=== PATIENT | female | born 1990 | race Caucasian/White ===

== ENCOUNTER → 2018-04-26 | Outpatient (REF) | payer OTHER ==
[2018-04-26 12:38] LABS: BASO # 0.1 10^3/uL (0.0-0.2); BASO % 1.2 % (0.0-1.0); EOS # 0.2 10^3/uL (0.0-0.50); EOS % 2.7 % (0.0-3.0); HEMATOCRIT 40.7 % (36.0-47.0); HEMOGLOBIN 13.2 g/dl (12.0-15.5); LYMPH # 2.3 10^3/uL (1.5-6.5); LYMPH % 32.8 % (24.0-44.0); MEAN CORPUSCULAR HEMOGLOBIN 30.1 pg (27.0-33.0); MEAN CORPUSCULAR HGB CONC 32.4 g/dl (32.0-36.5); MEAN CORPUSCULAR VOLUME 92.9 fl (80.0-96.0); MONO # 0.4 10^3/uL (0.0-0.8); MONO % 5.9 % (0.0-5.0); NEUTROPHILS % 57.1 % (36.0-66.0); PLATELET COUNT, AUTOMATED 264 10^3/uL (150-450); RED BLOOD COUNT 4.38 10^6/uL (4.00-5.40)
[2018-04-26 13:25] LABS: BLOOD UREA NITROGEN 13 MG/DL (7-18); CALCIUM LEVEL 8.8 MG/DL (8.5-10.1); CARBON DIOXIDE LEVEL 28 MEQ/L (21-32); CHLORIDE LEVEL 108 MEQ/L (98-107); CHOLESTEROL LEVEL 218 MG/DL (<200); CHOLESTEROL RISK RATIO 3.892 (<5); CREATININE FOR GFR 0.84 MG/DL (0.55-1.30); FREE T4 0.94 NG/DL (0.76-1.46); GLOMERULAR FILTRATION RATE > 60.0 (>60); GLUCOSE, FASTING 95 MG/DL (70-100); HDL CHOLESTEROL 56 MG/DL (>40); LDL CHOLESTEROL 148 MG/DL (<100); NON-HDL-C 162 MG/DL; POTASSIUM SERUM 3.8 MEQ/L (3.5-5.1); SODIUM LEVEL 141 MEQ/L (136-145); THYROID STIMULATING HORMONE 0.529 uIU/ML (0.358-3.740); TRIGLYCERIDES LEVEL 69 MG/DL (<150)
== END ==
LOC: M SFHCLERA 09:12
PROVIDERS: ATTEND Nurse Practitioner Family
DX: Z76.89 Persons encountering health services in other specified circumstances (principal)

== ENCOUNTER 2018-10-28 18:18 | Emergency (ER) | payer OTHER ==
[~2018-10-28] VITALS: Ht 175.3 cm; Wt 69.1 kg
[2018-10-28 18:18] VITALS: BP 137/83
[2018-10-28] MEDS ORDERED: ZYPR2.5T2 PO (20:53)
[2018-10-28] MEDS ORDERED: LEXA1TAB PO (20:53)
[2018-10-28] MEDS ORDERED: PRAZ2CAP PO (20:53)
[2018-10-28] MEDS ORDERED: PRAZ5CAP PO (20:53)
[2018-10-28] MEDS ORDERED: LAMI1TAB8 PO (20:53)
[2018-10-28] MEDS ORDERED: LORA1TAB12 PO (20:53)
[2018-10-28] MEDS ORDERED: ERYT1OIN26 OS (21:03)
== END 2018-10-28 21:37 | disposition home or self-care (01) ==
LOC: M ED 18:18
DX: H00.025 Hordeolum internum left lower eyelid (principal); F17.200 Nicotine dependence, unspecified, uncomplicated; Z88.6 Allergy status to analgesic agent; Z79.899 Other long term (current) drug therapy

== ENCOUNTER → 2020-11-26 | Outpatient (CLI) | payer OTHER, SELFPAY ==
[~2020-11-26] MED LIST: ERYT5OIN25 OS; LAMI1TAB8 PO; LEXA1TAB PO; LORA1TAB4 PO; PRAZ2CAP PO; PRAZ5CAP PO; ZYPR2.5T2 PO
--- NOTE | 2020-11-26 15:49 | DEXAMM ---
INDICATION: ANOREXIA NERVOSA. COMPARISON: None. TECHNIQUE: Bone density was measured using dual-energy x-ray absorptiometry (DEXA). FINDINGS: AP SPINE L1-L4 BMD 1.179 g/cm2 Young Adult T-Score -0.1 Age Matched Z-Score -0.1. LT FEMUR, TOTAL BMD 1.049 g/cm2 Young Adult T-Score 0.3 Age Matched Z-Score 0.4. LT NECK BMD 1.095 g/cm2 Young Adult T-Score 0.4 Age Matched Z-Score 0.5. RT FEMUR, TOTAL BMD 1.049 g/cm2 Young Adult T-Score 0.3 Age Matched Z-Score 0.4. RT NECK BMD 1.053 g/cm2 Young Adult T-Score 0.1 Age Matched Z-Score 0.2. IMPRESSION: There is normal bone density of the spine. There is normal bone density of the left hip. There is normal bone density of the right hip. FOLLOW-UP: Recommendation for the next bone density exam: 5 years. <Electronically signed by Juan Jose Rosario > 11/26/20 [id number]
== END ==
LOC: M WHC 13:50
PROVIDERS: ATTEND Pediatrics
DX: F50.00 Anorexia nervosa, unspecified (principal)